=== PATIENT | female | born 1985 | race Caucasian/White ===

== ENCOUNTER 2017-08-14 22:06 | Emergency (ER) | payer OTHER ==
[~2017-08-14] VITALS: Ht 157.5 cm; Wt 95.6 kg
[2017-08-14 23:43] LABS: BASOPHILS # (AUTO) 0.01 x10^3/uL (0-0.1); BASOPHILS % (AUTO) 0 % (0-1); EOSINOPHILS # (AUTO) 0.07 x10^3/uL (0-0.4); EOSINOPHILS % (AUTO) 1 % (1-7); LYMPHOCYTES # (AUTO) 1.43 x10^3/uL (1-3.4); LYMPHOCYTES % (AUTO) 13 % (22-44); MD NO; MEAN CORPUSCULAR HEMOGLOBIN 27.8 pg (27.0-34.8); MEAN CORPUSCULAR VOLUME 84.1 fL (80-100); MEAN PLATELET VOLUME 7.9 fL (7.4-10.4); MONOCYTES # (AUTO) 0.56 x10^3/uL (0.2-0.8); MONOCYTES % (AUTO) 5 % (2-9); NEUTROPHILS # (AUTO) 8.92 x10^3/uL (1.8-6.8); NEUTROPHILS % (AUTO) 81 % (42-75); PLATELET COUNT 332 x10^3/uL (130-400); RED BLOOD COUNT 5.17 x10^6/uL (3.82-5.3); RED CELL DISTRIBUTION WIDTH 13.9 % (9.6-15.2)
[2017-08-15] LABS: ALBUMIN 3.4 g/dL (3.4-5.0); ANION GAP 10 mmol/L (5-15); CALCIUM 8.6 mg/dL (8.5-10.1); CHLORIDE 108 mmol/L (98-107)
[2017-08-15 00:12] LABS: CULTURE INDICATED? YES; MICROSCOPIC INDICATED
[2017-08-15 00:18] LABS: CREATININE 0.82 mg/dL (0.55-1.02)
[2017-08-15 01:37] VITALS: BP 104/71
== END 2017-08-15 01:40 | disposition home or self-care (01) ==
LOC: ED 23:59
DX: O20.0 Threatened abortion (principal); Z3A.01 Less than 8 weeks gestation of pregnancy; R82.99 Other abnormal findings in urine
CPT/HCPCS: 36415; 76801; 80048; 81001; 82040; 84702; 85025; 86901; 87086; 99285

== ENCOUNTER 2018-12-22 19:57 | Emergency (ER) | payer OTHER ==
[~2018-12-22] VITALS: Ht 157.5 cm; Wt 88.5 kg
--- NOTE | 2018-12-22 20:17 | NUR ---
PT TO ED WITH FOR DARK BROWN VAGINAL BLEEDING X3 DAYS. PT STATES APPROX 10 WEEKS . CONNECTE TO MONITORS. VSS. EDMD PRESENT FOR ASSESSMENT. AWAITING ORDERS. NO NEEDS EXPRESSED. CALL LIGHT WITHIN REACH.
[2018-12-22 21:04] LABS: BASOPHILS # (AUTO) 0.03 x10^3/uL (0-0.1); BASOPHILS % (AUTO) 0 % (0-1); EOSINOPHILS # (AUTO) 0.07 x10^3/uL (0-0.4); EOSINOPHILS % (AUTO) 1 % (1-7); LYMPHOCYTES # (AUTO) 2.79 x10^3/uL (1-3.4); LYMPHOCYTES % (AUTO) 27 % (22-44); MD NO; MEAN CORPUSCULAR HEMOGLOBIN 28.1 pg (27.0-34.8); MEAN CORPUSCULAR HGB CONC 32.1 g/dL (32.4-35.8); MEAN CORPUSCULAR VOLUME 87.4 fL (80-100); MEAN PLATELET VOLUME 7.6 fL (7.4-10.4); MONOCYTES # (AUTO) 0.52 x10^3/uL (0.2-0.8); MONOCYTES % (AUTO) 5 % (2-9); NEUTROPHILS # (AUTO) 7.07 x10^3/uL (1.8-6.8); NEUTROPHILS % (AUTO) 67 % (42-75); PLATELET COUNT 384 x10^3/uL (130-400); RED CELL DISTRIBUTION WIDTH 13.2 % (9.6-15.2)
--- NOTE | 2018-12-22 21:08 | NUR ---
PT IN IMAGING AT THIS TIME.
[2018-12-22 21:17] LABS: ALANINE AMINOTRANSFERASE 36 U/L (12-78); ALBUMIN 3.6 g/dL (3.4-5.0); ANION GAP 11 mmol/L (5-15); CHLORIDE 108 mmol/L (98-107); CREATININE 0.66 mg/dL (0.55-1.02)
--- NOTE | 2018-12-22 21:18 | NUR ---
PT BACK FORM US. TOLERATED WELL. NO NEEDS EXPRESSED. VSS. AWAITING RESULTS.
[2018-12-22 21:36] LABS: ALKALINE PHOSPHATASE 75 U/L (45-117); BILIRUBIN,TOTAL 0.3 mg/dL (0.2-1.0); TOTAL PROTEIN 7.9 g/dL (6.4-8.2)
--- NOTE | 2018-12-22 22:15 | NUR ---
pt sitting up on gurney, monitors in place, family at bedside, call light within reach. awaiting erp to talk to janee hilton
[2018-12-22 23:53] VITALS: BP 140/48
== END 2018-12-22 23:55 | disposition home or self-care (01) ==
LOC: ED 21:10
DX: O03.9 Complete or unspecified spontaneous abortion without complication (principal)
CPT/HCPCS: 36415; 76801; 80053; 84702; 85025; 99284

== ENCOUNTER 2020-05-26 18:50 | Inpatient (IN) | payer OTHER ==
[~2020-05-26] VITALS: Ht 157.5 cm; Wt 105.5 kg
[2020-05-26] MEDS ORDERED: OMEG1000 PO (21:12)
[2020-05-26] MEDS ORDERED: PREN1TAB79 PO (21:12)
[2020-05-26] MEDS ORDERED: ONDANSETRON 2MG/ML, 2ML IVPush PRN (21:30)
[2020-05-26] MEDS ORDERED: MISOPROSTOL 25 MCG TABLET VG PRN (21:30)
[2020-05-26] MEDS ORDERED: FENTANYL PF 100 MCG/2ML IV PRN (21:30)
[2020-05-26] MEDS ORDERED: ALUMINUM/MAG/SIMETHICONE 30 ML UDC PO PRN (21:30)
[2020-05-26] MEDS ORDERED: CALCIUM CARBONATE 500 MG TAB.CHEW PO PRN (21:30)
[2020-05-26] MEDS ORDERED: OXYTOCIN 30U/ 0.9% NaCL 500ML 500 ML IV ONE (21:30)
[2020-05-26] MEDS ORDERED: D5%-LACTATED RINGERS 1,000 ML IV SCH (21:30)
[2020-05-26] MEDS ORDERED: PLEASE ENTER HEIGHT AND WEIGHT MC SCH (21:30)
[2020-05-26] MEDS ORDERED: TERBUTALINE 1 MG/ML, 1ML SQ PRN (21:30)
[2020-05-26] MEDS ORDERED: FENTANYL PF 100 MCG/2ML IVPush PRN (21:30)
[2020-05-26] MEDS ORDERED: TERBUTALINE 1 MG/ML, 1ML IVPush PRN (21:30)
[2020-05-26 21:31] VITALS: BP 133/83
[2020-05-26] MEDS ORDERED: NEWBORN KIT ONE (22:03)
[2020-05-26] MEDS ORDERED: LIDOCAINE 1%, 20ML ONE (22:03)
[2020-05-26] MEDS ORDERED: MISOPROSTOL 25 MCG TABLET ONE (22:04)
[2020-05-26] MEDS ORDERED: TERBUTALINE 1 MG/ML, 1ML ONE (22:04)
[2020-05-26] MEDS ORDERED: MISOPROSTOL 200 MCG TABLET ONE (22:04)
[2020-05-26 22:08] LABS: BASOPHILS % (AUTO) 0 % (0-1); EOSINOPHILS % (AUTO) 1 % (1-7); LYMPHOCYTES % (AUTO) 22 % (22-44); MEAN CORPUSCULAR HEMOGLOBIN 24.9 pg (27.0-34.8); MEAN CORPUSCULAR HGB CONC 31.7 g/dL (32.4-35.8); MEAN PLATELET VOLUME 9.1 fL (7.4-10.4); MONOCYTES % (AUTO) 5 % (2-9); NEUTROPHILS % (AUTO) 73 % (42-75); PLATELET COUNT 304 x10^3/uL (130-400); RED BLOOD COUNT 4.67 x10^6/uL (3.82-5.3); RED CELL DISTRIBUTION WIDTH 15.9 % (9.6-15.2)
[2020-05-26 22:10] LABS: MD NO
[2020-05-26] MEDS: LACTATED RINGERS 1,000 ML IV SCH (22:12)
[2020-05-26] MEDS ORDERED: ACETAMINOPHEN 325 MG TABLET PO PRN (23:30)
[2020-05-27] MEDS ORDERED: MISOPROSTOL 25 MCG TABLET ONE (02:23)
[2020-05-27] MEDS: LACTATED RINGERS 1,000 ML IV SCH ×2 (08:14→13:05)
[2020-05-27] MEDS ORDERED: BUPIVACAINE 0.25% ONE (08:18)
[2020-05-27] MEDS ORDERED: FENTANYL/BUPIV./NS/PF 250 ML EPIDCONT ONE (08:18)
[2020-05-27] MEDS ORDERED: EPHEDRINE 50 MG/ML, 1ML IVPush PRN (08:30)
[2020-05-27] MEDS ORDERED: ONDANSETRON 2MG/ML, 2ML IVPush PRN (08:30)
[2020-05-27] MEDS ORDERED: DIPHENHYDRAMINE 50 MG/ML, 1ML IVPush PRN (08:30)
[2020-05-27] MEDS ORDERED: LACTATED RINGERS 1,000 ML IV SCH (08:30)
[2020-05-27] MEDS ORDERED: FENTANYL/BUPIV./NS/PF 250 ML EPIDCONT SCH (08:30)
[2020-05-27] MEDS ORDERED: LACTATED RINGERS 1,000 ML IVBOLUS PRN (08:30)
[2020-05-27] MEDS ORDERED: NALOXONE 0.4 MG/ML, 1ML IVPush PRN (08:30)
[2020-05-27] MEDS ORDERED: OXYTOCIN 30U/ 0.9% NaCL 500ML 500 ML ONE ×2 (09:44→21:25)
[2020-05-27 10:12] LABS: BASOPHILS % (AUTO) 0 % (0-1); EOSINOPHILS % (AUTO) 0 % (1-7); LYMPHOCYTES % (AUTO) 11 % (22-44); MEAN CORPUSCULAR HEMOGLOBIN 25.3 pg (27.0-34.8); MEAN CORPUSCULAR HGB CONC 32.1 g/dL (32.4-35.8); MEAN PLATELET VOLUME 8.8 fL (7.4-10.4); MONOCYTES % (AUTO) 4 % (2-9); NEUTROPHILS % (AUTO) 85 % (42-75); PLATELET COUNT 263 x10^3/uL (130-400); RED CELL DISTRIBUTION WIDTH 15.8 % (9.6-15.2)
[2020-05-27 10:14] LABS: MD NO
[2020-05-27 10:23] LABS: ANION GAP 12 mmol/L (5-15); CALCIUM 8.6 mg/dL (8.5-10.1); CHLORIDE 110 mmol/L (98-107); CREATININE 0.68 mg/dL (0.55-1.02)
[2020-05-27 10:24] LABS: ALANINE AMINOTRANSFERASE 16 U/L (12-78); ALBUMIN 2.2 g/dL (3.4-5.0)
[2020-05-27 10:26] LABS: ALKALINE PHOSPHATASE 107 U/L (45-117); BILIRUBIN,TOTAL 0.3 mg/dL (0.2-1.0); TOTAL PROTEIN 5.8 g/dL (6.4-8.2)
[2020-05-27] MEDS ORDERED: LIDOCAINE/MPF 2%-EPI 1:200K, 20 ML ONE (14:57)
[2020-05-27] MEDS ORDERED: ACETAMINOPHEN 500 MG TABLET ONE (15:43)
[2020-05-27] MEDS ORDERED: ACETAMINOPHEN 500 MG TABLET PO PRN (16:00)
[2020-05-27] MEDS ORDERED: GENTAMICIN PER PHARMACY MC PRN (16:00)
[2020-05-27] MEDS ORDERED: AMPICILLIN 2 GM in SODIUM CHLORIDE 0.9% 100 ML IV SCH (16:00)
[2020-05-27] MEDS ORDERED: PHARMACOKINETIC CONSULTATION MC ONE (16:00)
[2020-05-27] MEDS ORDERED: OXYTOCIN 30U/ 0.9% NaCL 500ML 500 ML IV PRN (16:00)
[2020-05-27] MEDS ORDERED: PHARMACOKINETIC MONITORING MC PRN (16:00)
[2020-05-27] MEDS ORDERED: GENTAMICIN 500 MG in SODIUM CHLORIDE 0.9% 100 ML IV SCH (16:00)
[2020-05-27] MEDS ORDERED: GENTAMICIN 360 MG in SODIUM CHLORIDE 0.9% 100 ML IV SCH (16:30)
[2020-05-27] MEDS ORDERED: LABETALOL 5MG/ML, 20ML ONE (19:56)
[2020-05-27] MEDS ORDERED: ACETAMINOPHEN 325 MG TABLET PO PRN (21:00)
[2020-05-27] MEDS: OXYTOCIN 30U/ 0.9% NaCL 500ML 500 ML IV SCH (21:00)
[2020-05-27] MEDS ORDERED: SIMETHICONE 80 MG CHEW TAB PO PRN (21:00)
[2020-05-27] MEDS ORDERED: OXYcodone/APAP 5/325MG TABLET PO PRN (21:00)
[2020-05-27] MEDS ORDERED: CARBOPROST TROMETHAMINE 250 MCG/ML, 1ML IM PRN (21:00)
[2020-05-27] MEDS ORDERED: ONDANSETRON 2MG/ML, 2ML IV PRN (21:00)
[2020-05-27] MEDS ORDERED: IBUPROFEN 800 MG TABLET PO PRN (21:00)
[2020-05-27] MEDS ORDERED: METOCLOPRAMIDE 5 MG/ML, 2ML IV PRN (21:00)
[2020-05-27] MEDS ORDERED: DOCUSATE 100 MG CAPSULE PO PRN (21:00)
[2020-05-27] MEDS ORDERED: TRANEXAMIC ACID 1,000 MG in SODIUM CHLORIDE 0.9% 100 ML IVPB ONE (21:00)
[2020-05-27] MEDS ORDERED: BISACODYL 10 MG SUPP PR PRN (21:00)
[2020-05-27] MEDS ORDERED: GLYCERIN ADULT SUPP PR PRN (21:00)
[2020-05-27] MEDS ORDERED: OXYcodone IR 5MG TABLET PO PRN (21:00)
[2020-05-27] MEDS: AMPICILLIN 2 GM in SODIUM CHLORIDE 0.9% 100 ML IV SCH (22:58)
[2020-05-27 23:00] VITALS: BP 126/78
[2020-05-28 05:00] VITALS: BP 128/89
[2020-05-28] MEDS: AMPICILLIN 2 GM in SODIUM CHLORIDE 0.9% 100 ML IV SCH ×3 (05:29→17:37)
[2020-05-28 06:12] LABS: CREATININE 0.84 mg/dL (0.55-1.02)
[2020-05-28] MEDS: IBUPROFEN 600 MG TABLET PO PRN ×2 (06:12→12:27)
[2020-05-28] MEDS: OXYTOCIN 30U/ 0.9% NaCL 500ML 500 ML IV SCH ×2 (07:00→17:00)
[2020-05-28 07:50] VITALS: BP 123/80
[2020-05-28] MEDS: PRENATAL VIT/IRON/FA 1 EACH TABLET PO SCH (08:28)
[2020-05-28 08:35] LABS: BASOPHILS % (AUTO) 1 % (0-1); EOSINOPHILS % (AUTO) 0 % (1-7); LYMPHOCYTES % (AUTO) 13 % (22-44); MEAN CORPUSCULAR HEMOGLOBIN 25.1 pg (27.0-34.8); MEAN PLATELET VOLUME 8.8 fL (7.4-10.4); MONOCYTES % (AUTO) 4 % (2-9); NEUTROPHILS % (AUTO) 82 % (42-75); PLATELET COUNT 242 x10^3/uL (130-400); RED BLOOD COUNT 3.59 x10^6/uL (3.82-5.3)
[2020-05-28 08:47] LABS: MD NO
[2020-05-28 12:22] VITALS: BP 128/84
[2020-05-28 16:00] VITALS: BP 133/86
[2020-05-28] MEDS ORDERED: GENTAMICIN 360 MG in SODIUM CHLORIDE 0.9% 100 ML IV SCH (16:30)
[2020-05-28 20:00] VITALS: BP 135/92
[2020-05-29 00:10] VITALS: BP 124/85
[2020-05-29 04:10] VITALS: BP 133/87
[2020-05-29 08:00] VITALS: BP 126/85
[2020-05-29] MEDS ORDERED: IBUP-1222 PO (09:01)
[2020-05-29] MEDS: PRENATAL VIT/IRON/FA 1 EACH TABLET PO SCH (09:22)
[2020-05-29] MEDS ORDERED: OMEG-89 PO (10:25)
[2020-05-29] MEDS ORDERED: OMEG10007 PO (10:25)
[2020-05-29] MEDS ORDERED: ACET325T26 PO (10:26)
[2020-05-29] MEDS ORDERED: PREN1TAB98 PO (10:26)
[2020-05-29] MEDS ORDERED: DOCU100C33 PO (10:27)
[2020-05-29] MEDS ORDERED: MEASLES,MUMPS&RUBELLA VACC/PF 0.5 ML SQ-VACC ONE (10:30)
== END 2020-05-29 11:27 | disposition home or self-care (01) | DRG 807 ==
LOC: LDIP 20:32 → 2NW 05-27 22:29
PROVIDERS: ADMIT Student in an Organized Health Care Education/Training Program; ATTEND Student in an Organized Health Care Education/Training Program
PROC: 10E0XZZ Delivery of Products of Conception, External Approach (ICD-10-PCS; principal; 2020-05-27)
PROC: 0KQM0ZZ Repair Perineum Muscle, Open Approach (ICD-10-PCS; 2020-05-27)
PROC: 10907ZC Drainage of Amniotic Fluid, Therapeutic from Products of Conception, Via Natural or Artificial Opening (ICD-10-PCS; 2020-05-27)
PROC: 3E033VJ Introduction of Other Hormone into Peripheral Vein, Percutaneous Approach (ICD-10-PCS; 2020-05-27)
PROC: 3E0P7VZ Introduction of Hormone into Female Reproductive, Via Natural or Artificial Opening (ICD-10-PCS; 2020-05-27)
PROC: 3E0R3BZ Introduction of Anesthetic Agent into Spinal Canal, Percutaneous Approach (ICD-10-PCS; 2020-05-27)
PROC: 00HU33Z Insertion of Infusion Device into Spinal Canal, Percutaneous Approach (ICD-10-PCS; 2020-05-27)
DX: O41.03X0 Oligohydramnios, third trimester, not applicable or unspecified (principal); Z37.0 Single live birth; O14.04 Mild to moderate pre-eclampsia, complicating childbirth; O70.1 Second degree perineal laceration during delivery; O99.52 Diseases of the respiratory system complicating childbirth; Z3A.37 37 weeks gestation of pregnancy; Z83.3 Family history of diabetes mellitus; J45.909 Unspecified asthma, uncomplicated; Z20.828 Contact with and (suspected) exposure to other viral communicable diseases
CPT/HCPCS: 36415; 80053; 82565; 82570; 84156; 84520; 85025; 86592; 86850; 86900; 87635; G0378; J0290; J1580; J2590; J3010; J7120; J7121